=== PATIENT | male | born 1975 | race Caucasian/White ===

== ENCOUNTER → 2017-03-05 | Outpatient (CLI) | payer OTHER ==
--- NOTE | 2017-03-05 11:25 | KCIC ---
EXAM: Thoracic spine, 3 views. HISTORY: Pain. COMPARISON: None. FINDINGS: Frontal, lateral and swimmer's views of the thoracic spine are obtained. There is no listhesis. The vertebral bodies are normal in height and the disc spaces are preserved. IMPRESSION: No acute osseous finding. Electronically signed by: Dede Doyle MD (03/05/2017 11:22 AM) [id number]
== END | disposition home or self-care (01) ==
LOC: KCIC 10:48
PROVIDERS: ATTEND Physician Assistant Medical
DX: M54.6 Pain in thoracic spine (principal)
CPT/HCPCS: 72072